=== PATIENT | male | born 1985 | race Caucasian/White ===

== ENCOUNTER 2017-01-26 18:43 | Emergency (ER) | payer SELFPAY ==
[~2017-01-26] VITALS: Ht 167.6 cm; Wt 90.7 kg
[~2017-01-26 18:43] MED LIST: AMOXICILLIN500 MG ORAL; BACTRIM DS TAB1 EAC1 ORAL; IBUPROFEN600 MG ORAL; KEFLEX500 MG ORAL; NORCO 5-325 TA1 EACH ORAL
--- NOTE | 2017-01-26 19:01 | Emergency Room Report ---
History of Present Illness General Chief Complaint: Skin Rash/Abscess Source: Patient Present Illness HPI 32-year-old male presents emergency department complaining of pain, swelling, erythema and tenderness rated as 8/10 in severity in the left axilla x5 days. Patient denies fevers, chills, trauma or fall. He reports progressive swelling and tenderness. He should seek is up-to-date with vaccinations. he states he had a previous abscess along posterior calf in the past. Denies CP, Palpitations, LOC, AMS, dizziness, Changes in Vision, Sensation, paresthesias, or a sudden severe headache. Allergies: Coded Allergies: NO KNOWN DRUG ALLERGIES (Unverified Allergy, Unknown, 09/20/15) Patient History Past Medical History: see triage record Past Surgical History: none Pertinent Family History: none Reviewed Nursing Documentation: PMH: Agreed, PSxH: Agreed Nursing Documentation-PMH Past Medical History: No Stated History Review of Systems All Other Systems: negative except mentioned in HPI Physical Exam Vital Signs Date Time Temp Pulse Resp B/P Pulse Ox O2 Delivery O2 Flow Rate FiO2 01/26/17 18:45 98.2 111 18 126/79 98 Room Air Sp02 EP Interpretation: reviewed, normal General Appearance: no apparent distress, alert, GCS 15, non-toxic Head: normocephalic, atraumatic Eyes: bilateral eye PERRL, bilateral eye normal inspection ENT: hearing grossly normal, normal pharynx, no angioedema, normal voice Neck: full range of motion, supple/symm/no masses Respiratory: lungs clear, normal breath sounds, speaking full sentences Cardiovascular #1: regular rate, rhythm, no edema Musculoskeletal: back normal, gait/station normal, normal range of motion, non- tender, tender - ttp to the left axilla, FROM Neurologic: alert, oriented x3, responsive, motor strength/tone normal, sensory intact, speech normal Psychiatric: judgement/insight normal, memory normal, mood/affect normal Skin: normal color, no rash, warm/dry, well hydrated, other - 2.5cm abscess to the left axilla, fluctuance palpated, erythema, swelling, tenderness. Lymphatic: no adenopathy Procedures Incision and Drainage Incision and Drainage : Consent: Verbal Site: left axilla Blade Size: 11 I & D Procedure: betadine prep Wound Location: upper extremity - left axilla Wound's Depth, Shape: superficial Wound Length (cm): 1 Wound Explored: contaminated - purulent drainage expressed Anesthesia: Lidocaine w/ Epi Volume Anesthetic (ccs): 1 Splint Applied?: No Sling Applied?: No Patient Tolerated: Well Complications: None Medical Decision Making PA Attestation Dr. Mobley is my supervising Physician whom patient management has been discussed with. Diagnostic Impression: Primary Impression: Abscess ER Course Pt. presents to the ED c/o pain, swelling, and erythema of left axilla x 5 days. Ddx considered but are not limited to cellulitis, abscess, cystic acne, necrotizing fasciitis, insect bite. Vital signs: are WNL, pt. is afebrile H&PE are most consistent with abscess ORDERS: none required at this time, the diagnosis is clinical ED INTERVENTIONS: -I & D. DISCHARGE: At this time pt. is stable for d/c to home. Will provide printed patient care instructions, and any necessary prescriptions. Care plan and follow up instructions have been discussed with the patient prior to discharge. Last Vital Signs Date Time Temp Pulse Resp B/P Pulse Ox O2 Delivery O2 Flow Rate FiO2 01/26/17 18:45 98.2 111 18 126/79 98 Room Air Disposition: HOME, SELF-CARE Condition: Stable Scripts Bacitracin/Polymyxin B Sulfate (BACITRACIN-POLYMYXIN OINTMENT) 28.35 Gm Oint...g. 1 APPLIC TP BID, #28.3 GM Prov: Pam Hsu 01/26/17 Acetaminophen* (TYLENOL EXTRA STRENGTH*) 500 Mg Tablet 500 MG ORAL Q6H, #20 TAB 0 Refills Prov: Pam Hsu 01/26/17 Clindamycin Hcl (CLEOCIN HCL) 300 Mg Capsule 300 MG PO TID for 7 Days, #21 CAP Prov: Pam Hsu 01/26/17 Departure Forms: Return to Work Return to Work Date: Jan 30, 2017 Work Restrictions: No Heavy Lifting, No Prolonged Standing Return to Full Activity: Feb 03, 2017 Patient Instructions: Abscess Additional Instructions: Take medications as directed. Follow up with PCP in 3-5 days Return sooner to ED if new symptoms occur, or current symptoms become worse. - Please note that this Emergency Department Report was dictated using [employer] instructor technology software, occasionally this can lead to erroneous entry secondary to interpretation by the dictation equipment. Pam Hsu Jan 26, 2017 19:00
[2017-01-26] MEDS ORDERED: CLEOCIN HCL300 MG PO (19:04)
[2017-01-26] MEDS ORDERED: BACITRACIN-P28.35 GM TP (19:04)
[2017-01-26] MEDS ORDERED: TYLENOL EXTRA500 MG ORAL (19:04)
[2017-01-26 19:15] VITALS: BP 126/79
[2017-01-26] MEDS ORDERED: Norco 5mg/325mg tab ORAL ONE (19:15)
[2017-01-26 20:07] VITALS: BP 118/71
== END 2017-01-27 02:33 | disposition home or self-care (01) ==
LOC: EMR 18:55
DX: L02.412 Cutaneous abscess of left axilla (principal)
CPT/HCPCS: 10060

== ENCOUNTER 2017-03-25 08:24 | Emergency (ER) | payer MEDICAID ==
[~2017-03-25] VITALS: Ht 167.6 cm; Wt 81.6 kg
[~2017-03-25 08:24] MED LIST changes: +BACITRACIN-P28.35 GM TP; +CLEOCIN HCL300 MG PO; +TYLENOL EXTRA500 MG ORAL
[2017-03-25] MEDS ORDERED: Ketorolac 30mg Inj IV ONE (09:00)
[2017-03-25] MEDS ORDERED: Ampicillin/Sulbactam Sod 3 GM in NS 110 ML IVPB ONE (09:00)
[2017-03-25] MEDS ORDERED: Unasyn 3gm Inj ONE (09:07)
[2017-03-25] MEDS ORDERED: BACTRIM DS TAB1 EAC1 ORAL (09:51)
[2017-03-25] MEDS ORDERED: AUGMENTIN 875-1 EAC1 ORAL (09:51)
[2017-03-25] MEDS ORDERED: IBUPROFEN600 MG ORAL (09:51)
[2017-03-25 10:01] LABS: BASOPHILS % (AUTO) 0.5 % (0.0-2.0); EOSINOPHILS % (AUTO) 1.9 % (0.0-3.0); LYMPHOCYTES % (AUTO) 21.9 % (20.0-45.0); MEAN CORPUSCULAR HEMOGLOBIN 30.4 PG (27.0-31.0); MEAN CORPUSCULAR HGB CONC 32.7 G/DL (32.0-36.0); MEAN CORPUSCULAR VOLUME 93 FL (80-99); MEAN PLATELET VOLUME 7.3 FL (6.5-10.1); NEUTROPHILS % (AUTO) 66.7 % (45.0-75.0); PLATELET COUNT 281 K/UL (150-450); RED BLOOD COUNT 5.15 M/UL (4.70-6.10); RED CELL DISTRIBUTION WIDTH 12.2 % (11.6-14.8); WHITE BLOOD COUNT 12.6 K/UL (4.8-10.8)
[2017-03-25 10:17] LABS: ANION GAP 11 (5-15); CARBON DIOXIDE 26 mEQ/L (20-30); CHLORIDE 100 mEQ/L (98-107); GLOMERULAR FILTRATION RATE > 60 mL/min (>60); HEMOLYSIS 9; POTASSIUM 4.1 mEQ/L (3.4-4.9); SODIUM 137 mEQ/L (135-145)
[2017-03-25 10:38] VITALS: BP 116/78
--- NOTE | 2017-03-29 15:12 | Emergency Room Report ---
History of Present Illness General Chief Complaint: Skin Rash/Abscess Source: Patient Present Illness HPI Patient 32-year-old male presented after increased upper extremity pain and swelling. The patient gradual onset of symptoms over the past 2 days. He stated he started with a pimple which she subsequently attempted to drain. Patient reported having increased pain to his upper extremity. He had not been having fever. Patient had prior history of abscess. The patient denied any fever had gradually worsening symptoms. Allergies: Coded Allergies: NO KNOWN DRUG ALLERGIES (Unverified Allergy, Unknown, 09/20/15) Patient History Past Medical History: see triage record Reviewed Nursing Documentation: PMH: Agreed, PSxH: Agreed Nursing Documentation-PMH Past Medical History: No Stated History Review of Systems All Other Systems: negative except mentioned in HPI Physical Exam Vital Signs Date Time Temp Pulse Resp B/P Pulse Ox O2 Delivery O2 Flow Rate FiO2 03/25/17 08:35 97.9 85 20 104/73 100 Room Air Sp02 EP Interpretation: reviewed, normal General Appearance: normal inspection, well appearing, no apparent distress, alert, GCS 15 Head: atraumatic ENT: normal ENT inspection, hearing grossly normal, normal voice Neck: normal inspection, full range of motion, supple, no bony tend Respiratory: normal inspection, lungs clear, normal breath sounds, no respiratory distress, no retraction, no wheezing Cardiovascular #1: regular rate, rhythm, no edema Gastrointestinal: normal inspection, normal bowel sounds, non tender, soft, no guarding, no hernia Genitourinary: no CVA tenderness Musculoskeletal: normal inspection, back normal, normal range of motion Neurologic: normal inspection, alert, responsive, speech normal Psychiatric: normal inspection, judgement/insight normal, mood/affect normal Skin: other - erythema and induration of extremity Procedures Incision and Drainage Incision and Drainage : Consent: Verbal I & D Procedure: betadine prep, sterile drapes applied, sterile dressing applied Wound Location: upper extremity Wound's Depth, Shape: superficial Wound Length (cm): 1 Wound Explored: clean Anesthesia: 1% Lidocaine Patient Tolerated: Well Complications: None Medical Decision Making Diagnostic Impression: Primary Impression: Cellulitis ER Course Patient presented for skin rash. Differential diagnosis included was not limited to abscess, cellulitis, folliculitis, necrotizing fasciitis. Because of complexity of patient's case laboratory testing and imaging studies were ordered. Patient's benign exam and does not appear to require any further imaging or laboratory testing at this time. The patient was given IV antibiotics. The patient was noted to have some evidence of cellulitis. There is no significant purulent drainage. The patient is advised to follow up with primary care doctor in 1-2 days. Patient is advised to return if any worsening condition or if any changes in status that are concerning. Last Vital Signs Date Time Temp Pulse Resp B/P Pulse Ox O2 Delivery O2 Flow Rate FiO2 03/25/17 10:38 69 16 116/82 97 Room Air 03/25/17 10:38 98.0 Status: improved Disposition: HOME, SELF-CARE Condition: Stable Scripts Ibuprofen* (MOTRIN*) 600 Mg Tablet 600 MG ORAL Q8H Y for For Pain, #30 TAB 0 Refills Prov: Juan M Boss 03/25/17 Trimethoprim/Sulfamethoxazole 160/800* (BACTRIM DS TABLET*) 1 Each Tablet 1 TAB ORAL Q12H, #14 TAB 0 Refills Prov: Juan M Boss 03/25/17 Amoxicillin/Potassium Clav 875-125* (AUGMENTIN 875-125 TABLET*) 1 Each Tablet 1 TAB ORAL TWICE A DAY, #14 TAB Prov: Juan M Boss 03/25/17 Referrals: NOT CHOSEN IPA/,REFERRING (PCP) Patient Instructions: Cellulitis Juan M Boss Mar 29, 2017 15:12
--- NOTE | 2017-03-31 00:15 | Progress Note ---
DATE: 03/30/2017 INTERNAL MEDICINE PROGRESS NOTE SUBJECTIVE: The patient's swelling of the right upper extremity and pain has decreased. Cultures of the drainage revealed Staph aureus. Hemoglobin A1c was normal at 5.7. TSH was normal at 1.1. OBJECTIVE: VITAL SIGNS: Stable. Afebrile. NECK: Supple. LUNGS: Clear. CARDIAC: Regular. Normal S1 and S2 with no murmur. ABDOMEN: Soft. There is minimal residual soft tissue swelling of the right forearm. No active drainage from the elbow and warmth and redness has decreased. IMAGING STUDIES: The CAT scan of the right upper extremity revealed no evidence of abscess or osteomyelitis. IMPRESSION: Right upper extremity cellulitis improving due to Staph aureus. PLAN: Await final sensitivities. Continue intravenous antibiotics with vancomycin for now. Wound and skin care. Dustin Hathaway M.D. DR: JESSICA JOB#: [id number] CC:
== END 2017-03-25 10:38 | disposition home or self-care (01) ==
LOC: EMR 08:46
DX: L03.113 Cellulitis of right upper limb (principal)
CPT/HCPCS: 10060; 36415; 80048; 85025; 96374; 96375; 99284; J0295; J1885

== ENCOUNTER 2017-03-27 19:42 | Inpatient (IN) | payer MEDICAID ==
[~2017-03-27] VITALS: Ht 167.6 cm; Wt 93.9 kg
[~2017-03-27 19:42] MED LIST changes: +AUGMENTIN 875-1 EAC1 ORAL
[2017-03-27] MEDS ORDERED: NS 1000ml 2,200 ML IVLG ONE (21:15)
[2017-03-27] MEDS ORDERED: Vancomycin 1.5gm/D5W 250ml 250 ML IVPB ONE (21:15)
[2017-03-27] MEDS ORDERED: Unasyn 3gm Inj IV ONE (21:15)
[2017-03-27] MEDS ORDERED: oxyCODONE HCL/Acetaminophen 5/325mg ORAL ONE (21:15)
[2017-03-27] MEDS ORDERED: Piperacillin/Tazobactam 4.5 GM in NS 110 ML IV SCH (22:00)
[2017-03-27 22:43] LABS: BASOPHILS % (AUTO) 1.3 % (0.0-2.0); EOSINOPHILS % (AUTO) 2.1 % (0.0-3.0); LYMPHOCYTES % (AUTO) 24.1 % (20.0-45.0); MEAN CORPUSCULAR HEMOGLOBIN 32.1 PG (27.0-31.0); MEAN CORPUSCULAR HGB CONC 34.6 G/DL (32.0-36.0); MEAN CORPUSCULAR VOLUME 93 FL (80-99); MEAN PLATELET VOLUME 7.1 FL (6.5-10.1); MONOCYTES % (AUTO) 9.1 % (1.0-10.0); NEUTROPHILS % (AUTO) 63.3 % (45.0-75.0); PLATELET COUNT 292 K/UL (150-450); RED CELL DISTRIBUTION WIDTH 11.9 % (11.6-14.8); WHITE BLOOD COUNT 13.1 K/UL (4.8-10.8)
[2017-03-27 22:46] LABS: ALANINE AMINOTRANSFERASE 80 U/L (3-41); ALBUMIN/GLOBULIN RATIO 1.2 (1.0-2.7); ANION GAP 14 (5-15); ASPARTATE AMINO TRANSFERASE 32 U/L (5-40); CALCIUM 9.4 mg/dL (8.6-10.2); CARBON DIOXIDE 24 mEQ/L (20-30); CHLORIDE 98 mEQ/L (98-107); GLOMERULAR FILTRATION RATE > 60 mL/min (>60); HEMOLYSIS 11; POTASSIUM 3.9 mEQ/L (3.4-4.9); SODIUM 136 mEQ/L (135-145); TOTAL PROTEIN 7.9 g/dL (6.6-8.7)
[2017-03-27 22:57] LABS: CKMB < 1.5 ng/mL (< 6.7)
[2017-03-27 23:32] VITALS: BP 125/84
[2017-03-28 01:05] VITALS: BP 135/80
[2017-03-28] MEDS ORDERED: Milk of Magnesia 30ml Ud ORAL PRN (01:15)
[2017-03-28] MEDS ORDERED: Potassium Chloride 10 MEQ in NS 1000ml 1,000 ML IV SCH (02:00)
[2017-03-28] MEDS ORDERED: Cefepime 1gm vial ONE (03:08)
[2017-03-28] MEDS: Cefepime HCl 1 GM in D5W 55 ML IVPB SCH ×3 (03:28→20:23)
[2017-03-28 04:00] VITALS: BP 120/64
[2017-03-28] MEDS: Norco 5mg/325mg tab ORAL PRN ×2 (06:57→20:22)
[2017-03-28] MEDS: Potassium Chloride 10 MEQ in NS 1000ml 1,000 ML IV SCH ×3 (07:52→18:45)
[2017-03-28 08:05] VITALS: BP 128/73
[2017-03-28] MEDS: Vancomycin 1.5 GM/D5W 250ML IVPB SCH ×2 (10:30→21:29)
[2017-03-28 12:00] VITALS: BP 113/75
--- NOTE | 2017-03-28 15:24 | Emergency Room Report ---
History of Present Illness General Chief Complaint: Upper Extremity Injury Source: Patient Present Illness HPI 32YOM walk in with worsening right arm pain for 1 week Was seen here ?1 week prior - no note in EMR but visit noted. Got IV unsasyn. Got PO Abx at home. States took Abx, no improvement No pain spreading to right shoulder, down right arm No fever/chills Multiple visits here previously for cellulitis/abscess States initial improvement last week with IV abx Allergies: Coded Allergies: NO KNOWN DRUG ALLERGIES (Unverified Allergy, Unknown, 09/20/15) Patient History Past Medical History: other - Cellulitis/abscess Past Surgical History: none Pertinent Family History: none Social History: Denies: alcohol use, drug use, smoking Immunizations: UTD Reviewed Nursing Documentation: PMH: Agreed, PSxH: Agreed Nursing Documentation-PMH Past Medical History: No Stated History Review of Systems All Other Systems: negative except mentioned in HPI Physical Exam Vital Signs Date Time Temp Pulse Resp B/P Pulse Ox O2 Delivery O2 Flow Rate FiO2 03/27/17 20:15 100.4 103 18 127/73 98 03/27/17 23:32 Room Air Sp02 EP Interpretation: reviewed, normal General Appearance: normal inspection, well appearing, no apparent distress, alert Head: atraumatic ENT: normal ENT inspection, hearing grossly normal, normal voice Neck: normal inspection, full range of motion, supple, no bony tend Respiratory: normal inspection, lungs clear, normal breath sounds, no respiratory distress, no retraction, no wheezing Cardiovascular #1: regular rate, rhythm, no edema Gastrointestinal: normal inspection, normal bowel sounds, non tender, soft, no guarding, no hernia Genitourinary: no CVA tenderness Musculoskeletal: normal inspection, back normal, normal range of motion, Sylvester' s Sign negative, other - Right arm: swelling/erythema/induration from distal humerus, including elbow, and proximal forearm. Able to close fist. 2++ distal radius. Very ttp Neurologic: normal inspection, alert, oriented x3, responsive, nuclear officer III-XII nml as tested, motor strength/tone normal, speech normal Psychiatric: normal inspection, judgement/insight normal, mood/affect normal Skin: normal inspection, normal color, no rash Medical Decision Making Diagnostic Impression: Primary Impression: Cellulitis Qualified Codes: L03.113 - Cellulitis of right upper limb ER Course Progressive cellulitis right arm Failed outpatient PO abx Labs: Leuks 13K No other metabolic abnormalities IV Abx given here Blood Cx pending Admitted to Dr Hathaway, med/surg at 1030pm EKG Diagnostic Results Rate: normal Rhythm: NSR ST Segments: no acute changes ASA given to the pt in ED: No Last Vital Signs Date Time Temp Pulse Resp B/P Pulse Ox O2 Delivery O2 Flow Rate FiO2 03/28/17 12:00 98.1 80 18 113/75 100 Room Air Status: improved Disposition: ADMITTED INPATIENT Condition: Serious Referrals: NOT CHOSEN IPA/,REFERRING (PCP) JEANCARLOS GALLARDO M.D. Mar 28, 2017 15:24
[2017-03-28 15:49] VITALS: BP 125/92
[2017-03-28 19:45] VITALS: BP 132/78
[2017-03-29] MEDS ORDERED: DiphenhydrAMINE 50mg/ml Inj IVP PRN (00:45)
--- NOTE | 2017-03-29 01:15 | History and Physical Report ---
DATE OF ADMISSION: 03/28/2017 REASON FOR ADMISSION: Right upper extremity cellulitis. HISTORY OF PRESENT ILLNESS: This is a 32-year-old male. He noted a scratch on his elbow several days ago and subsequent erythema and warmth. He was seen in the emergency room on 03/25/2017 and started on oral antibiotics, but failed to improve with progression of the warmth, redness, and swelling prompting his return and hospitalization for intravenous therapy. The patient has been hospitalized here twice in the past few years for skin infection. On one occasion, he had a boil under his arm pit. On another occasion, he had an infected hair follicle on his arm with associated cellulitis that resolved with intravenous therapy. The patient denies any history of intravenous drug abuse and has no other history of infection. There is no known history of diabetes mellitus despite a family history. PAST MEDICAL HISTORY: Otherwise unremarkable. MEDICATIONS PRIOR TO ADMISSION: None. SOCIAL HISTORY: Negative for smoking, alcohol, or substance abuse. FAMILY HISTORY: Notable for diabetes in his paternal side of the family. REVIEW OF SYSTEMS: A 10-point review of systems performed, all systems negative. PHYSICAL EXAMINATION: VITAL SIGNS: Temperature 100.4 degrees, blood pressure 127/73, heart rate 103, and respiratory rate 18. HEENT: Conjunctivae are pink. Oropharynx clear. Mucous membranes moist. NECK: Supple. Jugular venous pressure normal. No adenopathy. LUNGS: Clear. Chest wall without deformity. CARDIAC: Regular rhythm and rate. Normal S1 and S2 with no murmur. ABDOMEN: Soft and nontender. EXTREMITIES: With swelling, erythema, and induration of the right upper extremity from the distal humerus including the elbow to the proximal forearm. The patient is able to move his hands and make a fist. He has a Band-Aid over the elbow with a small abrasion under. LABORATORY DATA: Reviewed. IMPRESSION: 1. Right upper extremity cellulitis. 2. Leukocytosis. 3. Family history of diabetes mellitus. PLAN: 1. Skin care. 2. Intravenous antibiotics. 3. Tetanus prophylaxis if not up-to-date. 4. Check hemoglobin A1c. Dustin Hathaway M.D. : ERIN JOB#: [id number] CC:
[2017-03-29] MEDS: Norco 5mg/325mg tab ORAL PRN ×3 (03:01→20:29)
[2017-03-29 06:40] LABS: BASOPHILS % (AUTO) 0.9 % (0.0-2.0); EOSINOPHILS % (AUTO) 3.5 % (0.0-3.0); LYMPHOCYTES % (AUTO) 25.6 % (20.0-45.0); MEAN CORPUSCULAR HEMOGLOBIN 31.4 PG (27.0-31.0); MEAN CORPUSCULAR HGB CONC 33.7 G/DL (32.0-36.0); MEAN CORPUSCULAR VOLUME 93 FL (80-99); MEAN PLATELET VOLUME 7.1 FL (6.5-10.1); MONOCYTES % (AUTO) 12.1 % (1.0-10.0); PLATELET COUNT 300 K/UL (150-450); RED BLOOD COUNT 4.74 M/UL (4.70-6.10); RED CELL DISTRIBUTION WIDTH 11.9 % (11.6-14.8); WHITE BLOOD COUNT 8.9 K/UL (4.8-10.8)
[2017-03-29 06:58] LABS: ALANINE AMINOTRANSFERASE 72 U/L (3-41); ALBUMIN/GLOBULIN RATIO 1.1 (1.0-2.7); ANION GAP 11 (5-15); ASPARTATE AMINO TRANSFERASE 28 U/L (5-40); CALCIUM 9.1 mg/dL (8.6-10.2); CARBON DIOXIDE 27 mEQ/L (20-30); CHLORIDE 100 mEQ/L (98-107); GLOMERULAR FILTRATION RATE > 60 mL/min (>60); HEMOLYSIS 2; POTASSIUM 4.5 mEQ/L (3.4-4.9); SODIUM 138 mEQ/L (135-145); TOTAL PROTEIN 7.3 g/dL (6.6-8.7)
[2017-03-29 08:00] VITALS: BP 118/77
[2017-03-29] MEDS: Cefepime HCl 1 GM in D5W 55 ML IVPB SCH ×2 (08:16→20:29)
[2017-03-29] MEDS: Vancomycin 1.5 GM/D5W 250ML IVPB SCH ×2 (10:20→22:34)
[2017-03-29] MEDS: Potassium Chloride 10 MEQ in NS 1000ml 1,000 ML IV SCH ×2 (10:21→16:12)
--- NOTE | 2017-03-29 10:35 | Consultation ---
History of Present Illness General Date patient seen: Mar 29, 2017 Chief Complaint: Upper Extremity Injury Reason for Consultation: right upper extremity cellulitis Present Illness HPI 32 year old otherwise healthy male presented with worsening right upper extremity cellulitis. As per patient, a few days ago he had an "insect" bite to the right elbow. since noted some pain, swelling, and redness. Went to ED to have it evaluated and was diagnosed with cellulitis (no abscess noted at that time). Was discharged home with oral abx from ED. Since notes worsening cellulitis and returned. Was admitted for IV Abx and care. Earlier today noted some purulent drainage from wound. Surgery called to evaluate. When seen at bedside patient and family presents. states he is okay but infection not improving. no n/v/f/c. pain in right arm and swelling. no issues with active or passive motion but somewhat limited from swelling. Has had prior episodes, one right left axilla and one on right leg years ago. Allergies: Coded Allergies: NO KNOWN DRUG ALLERGIES (Unverified Allergy, Unknown, 09/20/15) Medication History Scheduled Acetaminophen* (Tylenol Extra Strength*), 500 MG ORAL Q6H Amoxicillin/Potassium Clav 875-125* (Augmentin 875-125 Tablet*), 1 TAB ORAL TWICE A DAY Bacitracin/Polymyxin B Sulfate (Bacitracin-Polymyxin Ointment), 1 APPLIC TP BID Clindamycin Hcl (Cleocin Hcl), 300 MG PO TID Trimethoprim/Sulfamethoxazole 160/800* (Bactrim Ds Tablet*), 1 TAB ORAL Q12H Scheduled PRN Ibuprofen* (Motrin*), 600 MG ORAL Q8H PRN for For Pain Patient History History Provided By: Patient Healthcare decision maker FARRUKH BUSH, SELF Resuscitation status Full Code Advanced Directive on File N/A Past Medical/Surgical History Past Medical/Surgical History: (1) [id number] (2) shoulder reduction (3) Cellulitis and abscess of lower extremity (4) Cellulitis and abscess of leg (5) Influenza-like symptoms (6) Abscess (7) Cellulitis Review of Systems Constitutional: Denies: chills, fever, malaise, no symptoms, other, see HPI, sweats, weakness Eye: Denies: acuity changes, blurred vision, discharge, double vision, eye pain , no symptoms, nose congestion, nose pain, other, see HPI, tearing ENT: Denies: ear discharge, ear pain, hearing loss, mouth pain, nasal discharge , no symptoms, nose congestion, nose pain, other, see HPI, throat pain, throat swelling Respiratory: Denies: MEADOWS, cough, no symptoms, orthopnea, other, see HPI, shortness of breath, sputum, stridor, wheezing Cardiovascular: Denies: PND, chest pain, edema, no symptoms, other, palpitations, see HPI, syncope Gastrointestinal: Denies: abdominal pain, constipation, diarrhea, hematemesis, melena, nausea, no symptoms, other, see HPI, vomiting Genitourinary: Denies: discharge, dysuria, frequency, hematuria, incontinence, no symptoms, other, pain, retention, see HPI, urgency, vag bleed/dc Musculoskeletal: Denies: back pain, gout, joint pain, joint swelling, muscle pain, muscle stiffness, no symptoms, other, see HPI Skin: Denies: change in color, change in hair/nails, dryness, lesions, no symptoms, other, rash, see HPI Psychiatric: Denies: HI, SI, anxiety, depressed feelings, emotional problems, hallucinations, no symptoms, other, prior hx, see HPI Neurological: Denies: dizziness, focal weakness, headache, no symptoms, numbness, other, paresthesia, see HPI, seizure, syncope, tingling, tremors Endocrine: Denies: excessive sweating, flushing, increased thirst, increased urine, intolerance to temperature, no symptoms, other, see HPI, unexplained weight loss Hematologic/Lymphatic: Denies: anemia, blood clots, diathesis, easy bleeding, easy bruising, no symptoms, other, see HPI, swollen glands All Other Systems: negative except mentioned in HPI Physical Exam General Appearance: WD/WN, no apparent distress, alert Lines, tubes and drains: peripheral HEENT: normocephalic, atraumatic, mucous membranes moist, PERRL Neck: normal inspection Respiratory/Chest: normal breath sounds, no respiratory distress, no accessory muscle use Cardiovascular/Chest: normal rate, regular rhythm, regularly irregular Abdomen: soft, no organomegaly, no mass Extremities: other - right upper extremity with small 3mm trauma at elbow with spontaneous drainage of 1cc of pus. mild cellulitis proximally and distally. okay active and passive range of motion. no abscess cavity or areas of fluctuance noted. Skin Exam: normal pigmentation Neurologic: alert, oriented x 3 Last 24 Hour Vital Signs Date Time Temp Pulse Resp B/P Pulse Ox O2 Delivery O2 Flow Rate FiO2 03/29/17 08:00 97.9 75 18 118/77 96 Room Air 03/29/17 04:11 98.0 03/28/17 19:45 98.0 89 18 132/78 98 Room Air 03/28/17 15:49 98.1 96 18 125/92 95 Room Air 03/28/17 12:00 98.1 80 18 113/75 100 Room Air Intake and Output 03/28/17 03/29/17 19:00 07:00 Intake Total 1960 ml 910 ml Balance 1960 ml 910 ml Intake Oral 600 ml 480 ml IV Total 1360 ml 430 ml # Voids 3 2 Laboratory Tests Test 03/29/17 05:10 White Blood Count 8.9 K/UL (4.8-10.8) Red Blood Count 4.74 M/UL (4.70-6.10) Hemoglobin 14.9 G/DL (14.2-18.0) Hematocrit 44.2 % (42.0-52.0) Mean Corpuscular Volume 93 FL (80-99) Mean Corpuscular Hemoglobin 31.4 PG (27.0-31.0) H Mean Corpuscular Hemoglobin Concent 33.7 G/DL (32.0-36.0) Red Cell Distribution Width 11.9 % (11.6-14.8) Platelet Count 300 K/UL (150-450) Mean Platelet Volume 7.1 FL (6.5-10.1) Neutrophils (%) (Auto) 58.0 % (45.0-75.0) Lymphocytes (%) (Auto) 25.6 % (20.0-45.0) Monocytes (%) (Auto) 12.1 % (1.0-10.0) H Eosinophils (%) (Auto) 3.5 % (0.0-3.0) H Basophils (%) (Auto) 0.9 % (0.0-2.0) Sodium Level 138 mEQ/L (135-145) Potassium Level 4.5 mEQ/L (3.4-4.9) Chloride Level 100 mEQ/L (98-107) Carbon Dioxide Level 27 mEQ/L (20-30) Anion Gap 11 (5-15) Blood Urea Nitrogen 8 mg/dL (7-23) Creatinine 1.0 mg/dL (0.7-1.2) Estimat Glomerular Filtration Rate > 60 mL/min (>60) Glucose Level 113 mg/dL (74-106) H Calcium Level 9.1 mg/dL (8.6-10.2) Total Bilirubin 0.5 mg/dL (0.0-1.2) Aspartate Amino Transf (AST/SGOT) 28 U/L (5-40) Alanine Aminotransferase (ALT/SGPT) 72 U/L (3-41) H Alkaline Phosphatase 55 U/L (40-129) Total Protein 7.3 g/dL (6.6-8.7) Albumin 3.9 g/dL (3.5-5.2) Globulin 3.4 g/dL Albumin/Globulin Ratio 1.1 (1.0-2.7) Thyroid Stimulating Hormone (TSH) 1.130 uIU/mL (0.300-4.500) Height (Feet): 5 Height (Inches): 6.00 Weight (Pounds): 207 Medications Current Medications Medications (Trade) Dose Ordered Sig/Shane Route PRN Reason Start Time Stop Time Status Last Admin Dose Admin Acetaminophen (Tylenol) 650 mg Q6H PRN ORAL Mild Pain/Temp > 100.5 03/28/17 01:15 04/27/17 01:14 03/28/17 07:53 Acetaminophen/ Hydrocodone Bitart (Paxton 5/325) 1 tab Q6H PRN ORAL For Pain moderate-severe 03/28/17 01:15 04/04/17 01:14 03/29/17 03:01 Cefepime HCl/ Dextrose (Maxipime/D5W) 55 ml @ 110 mls/hr EVERY 12 HOURS IVPB 03/28/17 01:15 04/04/17 01:14 03/29/17 08:16 Diphenhydramine HCl (Benadryl) 25 mg Q6H PRN IVP Itching 03/29/17 00:45 04/28/17 00:44 Magnesium Hydroxide 30 ml 30 ml DAILYPRN PRN ORAL Constipation 03/28/17 01:15 04/27/17 01:14 Potassium Chloride/Sodium Chloride (KCl/Sodium Chloride 1000ml bag) 1,005 ml @ 125 mls/hr Q8H3M IV 03/28/17 08:00 04/27/17 07:59 03/28/17 18:45 Vancomycin HCl 1 ea 1 ea DAILY PRN MISC Per rx protocol 03/28/17 01:15 04/27/17 01:14 Vancomycin HCl/ Dextrose 250 ml @ 125 mls/hr Q12H IVPB 03/28/17 10:00 04/02/17 09:59 03/28/17 21:29 Assessment/Plan Problem List: (1) Cellulitis Assessment & Plan: 32 year old male right upper extremity cellulitis with small 3mm spontaneously drainage abscess at initial wound site. Afebrile, HD stable, no leukocytosis, arm with some cellulitis proximal and distal to injury site but no other abscess or fluctuance noted. Cultures of spontaneously drainage taken No acute surgical intervention necessary Abx as per primary needs to keep right upper extremity elevated until cellulitis resolves. will continue to monitor. ICD Codes: L03.90 - Cellulitis, unspecified SNOMED: [id number] Qualifiers: Qualified Codes: L03.113 - Cellulitis of right upper limb Status: stable Rony Lawson Mar 29, 2017 10:35
[2017-03-29 15:46] VITALS: BP 125/74
[2017-03-29 20:00] VITALS: BP 118/80
--- NOTE | 2017-03-29 21:15 | Consultation ---
DATE OF CONSULTATION: 03/29/2017 INFECTIOUS DISEASES CONSULTATION PRIMARY ATTENDING PHYSICIAN: Dustin Hathaway M.D. REASON FOR CONSULT: Cellulitis, abscess of right upper extremity. HISTORY OF PRESENT ILLNESS: The patient is a 32-year-old male admitted on 03/27/2017 complaining of pain, swelling, and erythema in the right upper extremity elbow area. The patient had a previous visit to ER on 03/25/2017 when he was diagnosed with cellulitis and discharged with p.o. Bactrim, Augmentin, and ibuprofen. Apparently, the patient's medication did not work and the area of erythema increased. He had some fever at home and at the time of admission had a temperature of 100.4, has also tachycardia of 113 at the time of admission. PAST MEDICAL HISTORY: History of right shoulder dislocation, has history of skin abscess, cellulitis in right foot and left axilla. MEDICATIONS: Diphenhydramine, vancomycin, potassium chloride, cefepime, Tylenol, [place], and milk of magnesia. ALLERGIES: No known drug allergy. SOCIAL HISTORY: . Has four children. Denies alcohol, drug abuse, or smoking. REVIEW OF SYSTEMS: Pain, tenderness, and edema in the left and right elbow area. PHYSICAL EXAMINATION: VITAL SIGNS: Temperature 97 degrees, pulse 75, and blood pressure 118/77. GENERAL APPEARANCE: In no acute distress. Awake, alert, and oriented x3. HEAD AND NECK: L[place] conjunctiva. No oral lesion. HEART: S1 and S2 regular. Normal rate. LUNGS: Clear. ABDOMEN: Soft and nontender. EXTREMITIES: Have erythema, edema in right elbow area. There is some small opening of olecranon area. No significant discharge at the time of examination. LABORATORY AND DIAGNOSTIC DATA: WBC 8.9, coming down from 13.1, hemoglobin 14.9, hematocrit 44.2, and platelets are 300,000. Sodium 138, potassium 4.9, chloride 100, bicarbonate 27, BUN 8, creatinine 1. . Lactic acid was in normal limits. ALT is elevated at 72. Blood culture x2 are negative. Wound culture is pending. IMPRESSION: 1. Cellulitis of right upper extremity. 2. A small abscess in olecranon area, may have olecranon bursitis also. RECOMMENDATION: We will continue with cefepime and vancomycin. We will follow up the wound culture. We will suggest MRSA screening. At the end of my exam, I thank Dr. Hathaway for involving me in the care of this patient. Blaise Pace M.D. DR: ESPERANZA JOB#: [id number] CC: RICKY
[2017-03-30] VITALS: BP 134/85
[2017-03-30 04:00] VITALS: BP 124/78
[2017-03-30] MEDS: Vancomycin 1250mg/D5W 250ml IVPB SCH ×3 (06:35→22:46)
[2017-03-30 07:15] LABS: BASOPHILS % (AUTO) 1.8 % (0.0-2.0); EOSINOPHILS % (AUTO) 5.7 % (0.0-3.0); LYMPHOCYTES % (AUTO) 31.9 % (20.0-45.0); MEAN CORPUSCULAR HEMOGLOBIN 31.2 PG (27.0-31.0); MEAN CORPUSCULAR HGB CONC 33.6 G/DL (32.0-36.0); MEAN CORPUSCULAR VOLUME 93 FL (80-99); MEAN PLATELET VOLUME 7.2 FL (6.5-10.1); MONOCYTES % (AUTO) 13.4 % (1.0-10.0); NEUTROPHILS % (AUTO) 47.2 % (45.0-75.0); PLATELET COUNT 313 K/UL (150-450); RED BLOOD COUNT 4.87 M/UL (4.70-6.10); RED CELL DISTRIBUTION WIDTH 11.8 % (11.6-14.8); WHITE BLOOD COUNT 7.7 K/UL (4.8-10.8)
[2017-03-30 08:20] VITALS: BP 139/98
--- NOTE | 2017-03-30 08:50 | General Progress Note ---
Progress Note Progress Note Surgery: patient seen and examined at bedside. doing well. no acute events. comfortable. pain improved. no n/v/f/c. Afebrile, HD stable, labs okay. wound clean with dressings. mild exudate but no pus. Edema significantly improved. minimal surrounding cellulitis today -okay to shower -daily dressings to right elbow until dry -Abx as per primary -okay to d/c from surgical standpoint Rony Lawson Mar 30, 2017 08:50
[2017-03-30] MEDS: Cefepime HCl 1 GM in D5W 55 ML IVPB SCH (09:37)
--- NOTE | 2017-03-30 10:27 | Diagnostic Imaging Report ---
Indication: Right elbow cellulitis Technique: No IV contrast utilized, per referring physician request Spiral acquisitions obtained through the radial Multiplanar reconstructions were generated. Total dose length product 343 mGycm. CTDIvol(s) left mGy. Radiation dose was minimized using automated exposure control Comparison: None Findings: Lack of IV contrast severely limits evaluation. There is edema of the subcutaneous fat posteriorly, particular the region of the olecranon. No definite discrete fluid collections are evident. The edema extends beyond the included imaging volume. No evidence of joint effusion. No definite evidence of myositis, although lack of IV contrast essentially precludes evaluation for such No definite osseous cortical erosion or other osseous abnormality acute fractures. Prominent lymph nodes are seen in the upper arm, measuring up to 11 mm diameter Impression: Edema of the dorsal subcutaneous fat, consistent with stated clinical history of cellulitis. Although no definite abscess is demonstrated, small abscess is impossible to exclude in the absence of IV contrast administration. If there is high clinical concern, consider ultrasound for further evaluation No evidence of joint effusion. No evidence of osteomyelitis. However, sensitivity of CT for such is somewhat limited. Consider MRI if there is high clinical suspicion The CT scanner at [facility] is accredited by the [employer] and the scans are performed using protocols designed to limit radiation exposure to as low as reasonably achievable to attain images of sufficient resolution adequate for diagnostic evaluation.
--- NOTE | 2017-03-30 12:00 | Progress Note ---
DATE: 03/29/2017 INTERNAL MEDICINE PROGRESS NOTE SUBJECTIVE: The case was discussed with the patient in detail. Swelling, warmth, and drainage from his right upper extremity and elbow region were noted and surgical evaluation for I and D was requested and completed. The patient remains on IV antibiotics. He has low-grade fevers. OBJECTIVE: VITAL SIGNS: Vitals are stable. LABORATORY DATA: White count down to 8.9. Chemistry panel within normal limits. Hemoglobin A1c is pending. Exam otherwise without change. IMPRESSION: Right upper extremity cellulitis with abscess. PLAN: 1. Antibiotics. 2. Wound care mobilize. 3. Check hemoglobin A1c. Dustin Hathaway M.D. DR: JESSICA JOB#: [id number] CC:
--- NOTE | 2017-03-30 12:15 | Infectious Diseases Prog Note ---
"Assessment/Plan Assessment/Plan antibiotics : vancomycin iv, cefepime A 1. right elbow cellulitis | olecranon bursitis with staph aureus 2. leucocytosis improving P 1. continue iv vancomycin 2. d/c cefepime 3. will follow up cultures Subjective Constitutional: Denies: chills, fever Respiratory: Denies: dry cough, shortness of breath Gastrointestinal/Abdominal: Denies: diarrhea, nausea, vomiting Musculoskeletal: Reports: pain - in right arm Allergies: Coded Allergies: NO KNOWN DRUG ALLERGIES (Unverified Allergy, Unknown, 09/20/15) Objective Vital Signs Last 24 Hour Vital Signs Date Time Temp Pulse Resp B/P Pulse Ox O2 Delivery O2 Flow Rate FiO2 03/30/17 08:20 97.3 78 18 139/98 97 Room Air 03/30/17 04:00 97.4 63 18 124/78 97 Room Air 03/30/17 00:00 97.8 66 18 134/85 97 Room Air 03/29/17 20:00 97.9 70 18 118/80 96 Room Air 03/29/17 15:46 98.1 66 19 125/74 97 Room Air Height (Feet): 5 Height (Inches): 6.00 Weight (Pounds): 207 Respiratory/Chest: lungs clear Cardiovascular: normal rate, regular rhythm, no gallop/murmur Abdomen: soft, non tender Extremities: no edema, other - right elbow swelling, drainage Microbiology Date/Time Source Procedure Growth Status 03/27/17 22:18 Blood Blood Culture - Preliminary NO GROWTH AFTER 48 HOURS Resulted 03/27/17 22:00 Blood Blood Culture - Preliminary NO GROWTH AFTER 48 HOURS Resulted 03/29/17 10:00 Elbow Right Gram Stain - Final Resulted 03/29/17 10:00 Wound Culture - Preliminary Staphylococcus Aureus Resulted Laboratory Tests Test 03/29/17 22:05 03/30/17 06:30 Vancomycin Level Trough 8.9 ug/mL (5.0-12.0) White Blood Count 7.7 K/UL (4.8-10.8) Red Blood Count 4.87 M/UL (4.70-6.10) Hemoglobin 15.2 G/DL (14.2-18.0) Hematocrit 45.1 % (42.0-52.0) Mean Corpuscular Volume 93 FL (80-99) Mean Corpuscular Hemoglobin 31.2 PG (27.0-31.0) H Mean Corpuscular Hemoglobin Concent 33.6 G/DL (32.0-36.0) Red Cell Distribution Width 11.8 % (11.6-14.8) Platelet Count 313 K/UL (150-450) Mean Platelet Volume 7.2 FL (6.5-10.1) Neutrophils (%) (Auto) 47.2 % (45.0-75.0) Lymphocytes (%) (Auto) 31.9 % (20.0-45.0) Monocytes (%) (Auto) 13.4 % (1.0-10.0) H Eosinophils (%) (Auto) 5.7 % (0.0-3.0) H Basophils (%) (Auto) 1.8 % (0.0-2.0) Hemoglobin A1c 5.7 % (< 6.0) YUSUF GARDNER Mar 30, 2017 12:15"
[2017-03-30 16:00] VITALS: BP 136/73
[2017-03-30 20:00] VITALS: BP 118/71
[2017-03-31] VITALS: BP 120/69
[2017-03-31 04:00] VITALS: BP 113/61
[2017-03-31] MEDS: Vancomycin 1250mg/D5W 250ml IVPB SCH (05:43)
[2017-03-31 07:47] VITALS: BP 104/55
--- NOTE | 2017-03-31 08:42 | General Progress Note ---
Progress Note Progress Note Surgery: patient seen and examined at bedside. doing well. no acute events. afebrile, HD stable, labs okay. RUE edema/cellulitis resolved. minimal pain. wound clean and healing Abx as per primary can leave wound open to air okay to shower okay to d/c from surgical standpoint can follow up with me in clinic in 2 weeks for wound check or prn Rony Lawson Mar 31, 2017 08:42
[2017-03-31 11:38] VITALS: BP 122/61
--- NOTE | 2017-03-31 12:39 | Cardiology Report ---
APPROVED REPORT EKG Measurement Heart [id number] Normal sinus rhythm Normal ECG
--- NOTE | 2017-03-31 13:27 | Infectious Diseases Prog Note ---
"Assessment/Plan Assessment/Plan A 1. right elbow cellulitis | olecranon bursitis with staph aureus, MSSA 2. leucocytosis resolved P 1. change iv vancomycin to Cefazolin 2. at time of discharge PO Keflex Subjective ROS Limited/Unobtainable: No Constitutional: Reports: no symptoms Respiratory: Reports: no symptoms Cardiovascular: Reports: no symptoms Gastrointestinal/Abdominal: Reports: no symptoms Genitourinary: Reports: no symptoms Skin: Reports: other - itching in right elbow, ulcer Allergies: Coded Allergies: NO KNOWN DRUG ALLERGIES (Unverified Allergy, Unknown, 09/20/15) Objective Vital Signs Last 24 Hour Vital Signs Date Time Temp Pulse Resp B/P Pulse Ox O2 Delivery O2 Flow Rate FiO2 03/31/17 11:38 97.5 59 18 122/61 99 Room Air 03/31/17 07:47 97.7 69 19 104/55 99 Room Air 03/31/17 04:00 97.5 57 17 113/61 97 Room Air 03/31/17 00:00 98.2 77 20 120/69 95 Room Air 03/30/17 20:00 97.2 77 18 118/71 96 Room Air 03/30/17 16:00 97.9 60 16 136/73 99 Room Air Height (Feet): 5 Height (Inches): 6.00 Weight (Pounds): 207 General Appearance: no acute distress HEENT: mucous membranes moist Respiratory/Chest: lungs clear Cardiovascular: normal rate Abdomen: soft, non tender Extremities: no edema Skin: other - decreased erythema & edema of right elow Microbiology Date/Time Source Procedure Growth Status 03/29/17 15:00 Nasal Nares MRSA Culture - Final NO METHICILLIN RESISTANT STAPH AUREUS... Complete 03/29/17 10:00 Elbow Right Gram Stain - Final Resulted 03/29/17 10:00 Wound Culture - Preliminary Staphylococcus Aureus Resulted Current Medications Medications (Trade) Dose Ordered Sig/Shane Route PRN Reason Start Time Stop Time Status Last Admin Dose Admin Acetaminophen (Tylenol) 650 mg Q6H PRN ORAL Mild Pain/Temp > 100.5 03/28/17 01:15 04/27/17 01:14 03/28/17 07:53 Acetaminophen/ Hydrocodone Bitart ([place] 5/325) 1 tab Q6H PRN ORAL For Pain moderate-severe 03/28/17 01:15 04/04/17 01:14 03/29/17 20:29 Diphenhydramine HCl 25 mg 25 mg Q6H PRN IVP Itching 03/29/17 00:45 04/28/17 00:44 Magnesium Hydroxide (Mom) 30 ml DAILYPRN PRN ORAL Constipation 03/28/17 01:15 04/27/17 01:14 Vancomycin HCl (Vanco rx to dose) 1 ea DAILY PRN MISC Per rx protocol 03/28/17 01:15 04/27/17 01:14 Vancomycin HCl/ Dextrose (Vancomycin 1250mg/D5W 250ml) 250 ml @ 166.667 mls/hr Q8H IVPB 03/30/17 06:30 04/04/17 06:29 03/31/17 05:43 CATHRYN HARLEY Mar 31, 2017 13:27"
[2017-03-31] MEDS ORDERED: ceFAZolin sod 1 GM in D5W 55 ML IVPB SCH (15:00)
[2017-03-31 16:00] VITALS: BP 118/72
[2017-03-31] MEDS ORDERED: CEPHALEXIN500 M1 ORAL ×2 (16:58→16:59)
[2017-03-31] MEDS ORDERED: Tubing IV Secondary IV ONE (17:31)
--- NOTE | 2017-04-01 17:20 | Discharge Summary ---
Discharge Summary Hospital Course Date of Admission Mar 27, 2017 at 22:24 Date of Discharge Mar 31, 2017 at 17:32 Admitting Diagnosis cellulitis/abscess HPI Dustin Quiles is a 32 year old male who was admitted on Mar 27, 2017 at 22:24 for Cellulitis/Abscess Hospital Course [id number] Discharge Discharge Disposition Patient was discharged to Home (01) Discharge Diagnoses: Lilly Meeks [employer]NA[employer] Apr 01, 2017 17:20
--- NOTE | 2017-04-01 23:15 | Discharge Summary 2 SIG ---
DATE OF ADMISSION: 03/27/2017 DATE OF DISCHARGE: 03/31/2017 CONSULTANTS: 1. Rony Lawson M.D. 2. Nicole Lara M.D. BRIEF HOSPITAL COURSE: The patient is a 32-year-old male, who noted a scratch on his left elbow several days prior to admission with subsequent erythema and warmth. He presented to the emergency room on 03/25/2017 and was started on oral in antibiotics and was sent home. Symptoms failed to improve with progression of warmth, redness and swelling prompting his return and hospitalization for IV therapy. WBC on admission was elevated to 13. He was admitted to medical floor for right upper extremities and was started on cefepime and vancomycin by Infectious Disease specialist. Surgical evaluation was done. There are no issues with active or passive motion of the arm, but somewhat limited due to the swelling. There was no acute surgical intervention necessary and advised to continue with antibiotic and need to keep right upper extremity elevated. CT scan showed edema on the dorsal subcutaneous fat. No definite abscess demonstrated. No evidence of joint effusion. No evidence of osteomyelitis. He was given wound care. Edema significantly improved. There was mild exudate, but no pus. He was advised can leave the wound open to air and okay to shower. Wound culture showed MSSA. IV vancomycin was changed to cephalexin and at time of discharge was changed to p.o. Keflex. FINAL DIAGNOSIS: Right upper extremity cellulitis with abscess. DISPOSITION: The patient was discharged home. DISCHARGE MEDICATIONS: Cephalexin 500 mg q.i.d. FOLLOWUP: Follow up with Dr. Lawson in two weeks for wound check. ACTIVITY: Can leave the wound open to air and okay to shower. Dustin Hathaway M.D. I have been assigned to dictate discharge summary on this account and I was not involved in the patient's management. Karl GilbertP. DR: TRISHA JOB#: [id number] CC:
== END 2017-03-31 17:32 | disposition home or self-care (01) | DRG 383 ==
LOC: EMR 20:50 → 4W 22:24 → EDBEDREQ 03-28 00:08 → 4W 03-28 01:44 → 4E 03-29 08:57
DX: L03.113 Cellulitis of right upper limb (principal); B95.61 Methicillin susceptible Staphylococcus aureus infection as the cause of diseases classified elsewhere; L02.413 Cutaneous abscess of right upper limb; M71.121 Other infective bursitis, right elbow
CPT/HCPCS: 36415; 80053; 80202; 82550; 82553; 83036; 83605; 84443; 85025; 87040; 87070; 87081; 87181; 87205; 93005; 96360; 96361; 96375

== ENCOUNTER 2017-07-18 23:27 | Emergency (ER) | payer MEDICAID ==
[~2017-07-18] VITALS: Ht 167.6 cm; Wt 90.7 kg
[~2017-07-18 23:27] MED LIST changes: +CEPHALEXIN500 M1 ORAL
[2017-07-19 00:07] VITALS: BP 120/81
--- NOTE | 2017-07-19 00:13 | Emergency Room Report ---
History of Present Illness General Chief Complaint: Male Urogenital Problems Source: Patient Present Illness HPI Patient present with complaints of burning with urination It was that earlier he had whitish discharge with pain That seemed to have improved however at this evening again with urination he had some discharge associated with pain Denies any vomiting denies any chest pain denies any fevers or chills Patient is sexually active he reports only with his Denies any flank pain denies any rash Allergies: Coded Allergies: NO KNOWN DRUG ALLERGIES (Unverified Allergy, Unknown, 09/20/15) Patient History Past Medical History: see triage record Pertinent Family History: none Reviewed Nursing Documentation: PMH: Agreed, PSxH: Agreed Nursing Documentation-PMH Past Medical History: No Stated History Review of Systems All Other Systems: negative except mentioned in HPI Physical Exam Vital Signs Date Time Temp Pulse Resp B/P (MAP) Pulse Ox O2 Delivery O2 Flow Rate FiO2 07/18/17 23:46 98.6 93 18 120/81 96 Room Air Sp02 EP Interpretation: reviewed, normal General Appearance: well appearing, no apparent distress Head: normocephalic, atraumatic Eyes: bilateral eye PERRL, bilateral eye EOMI ENT: normal pharynx, no angioedema Neck: full range of motion, supple Respiratory: lungs clear, normal breath sounds Cardiovascular #1: regular rate, rhythm, no edema Gastrointestinal: non tender, soft Genitourinary: no CVA tenderness Musculoskeletal: normal inspection Neurologic: alert, oriented x3, responsive Skin: normal color, no rash Lymphatic: no adenopathy Medical Decision Making Diagnostic Impression: Primary Impression: Urethritis ER Course Patient's urine sample is clear Patient requires close followup with [facility] clinic for further testing are given the discharge and the discomfort patient was treated symptomatically here in the ER and will have close followup Labs Test 07/18/17 23:55 Urine Color Yellow Urine Appearance Clear Urine pH 8 (4.5-8.0) Urine Specific [place] 1.015 (1.005-1.035) Urine Protein Negative (NEGATIVE) Urine Glucose (UA) Negative (NEGATIVE) Urine Ketones Negative (NEGATIVE) Urine Occult Blood Negative (NEGATIVE) Urine Nitrite Negative (NEGATIVE) Urine Bilirubin Negative (NEGATIVE) Urine Urobilinogen Normal MG/DL (0.0-1.0) Urine Leukocyte Esterase Negative (NEGATIVE) Last Vital Signs Date Time Temp Pulse Resp B/P (MAP) Pulse Ox O2 Delivery O2 Flow Rate FiO2 07/19/17 00:07 98.6 18 120/81 96 Room Air 07/18/17 23:46 93 Status: improved Disposition: HOME, SELF-CARE Condition: Improved Scripts Phenazopyridine Hcl* (PYRIDIUM*) 200 Mg Tablet 200 MG ORAL THREE TIMES A DAY, #9 TAB 0 Refills Prov: YARA SOL D.O. 07/19/17 Additional Instructions: Patient is provided with the discharge instructions notified to follow up with primary doctor in the next 2-3 days otherwise return to the er with any worsening symptoms. Please note that this report is being documented using [employer] technology. This can lead to erroneous entry secondary to incorrect interpretation by the dictating instrument. YARA SOL D.O. Jul 19, 2017 00:13
[2017-07-19] MEDS ORDERED: Azithromycin 250mg tab ORAL ONE (00:15)
[2017-07-19 00:27] LABS: APPEARANCE,URINE CLEAR; KETONES,URINE NEGATIVE (NEGATIVE); LEUKOCYTE ESTERASE ,URINE NEGATIVE (NEGATIVE); NITRITE,URINE NEGATIVE (NEGATIVE); PH,URINE 8 (4.5-8.0); PROTEIN,URINE NEGATIVE (NEGATIVE); UROBILINOGEN,URINE NORMAL MG/DL (0.0-1.0)
[2017-07-19] MEDS ORDERED: PHENAZOPYRIDIN200 MG ORAL (00:34)
[2017-07-19 00:42] VITALS: BP 120/81
[2017-07-19] MEDS ORDERED: Phenazopyridine 200mg tab ORAL ONE (00:45)
== END 2017-07-19 00:42 | disposition home or self-care (01) ==
LOC: EMR 23:59
DX: N34.2 Other urethritis (principal)
CPT/HCPCS: 81003; 96372; 99284; J0696; Q0144

== ENCOUNTER 2017-09-17 22:00 | Emergency (ER) | payer MEDICAID ==
[~2017-09-17] VITALS: Ht 167.6 cm; Wt 90.3 kg
[~2017-09-17 22:00] MED LIST changes: +PHENAZOPYRIDIN200 MG ORAL
[2017-09-17 22:25] VITALS: BP 117/69
[2017-09-17] MEDS ORDERED: Bactrim-DS 1 tab ORAL ONE (22:45)
[2017-09-17] MEDS ORDERED: Norco 5mg/325mg tab ORAL ONE (22:45)
[2017-09-17] MEDS ORDERED: MUPIROCIN22 GM TOPIC (23:22)
[2017-09-17] MEDS ORDERED: BACTRIM DS TAB1 EAC1 ORAL (23:22)
[2017-09-17] MEDS ORDERED: HYDROCODON-ACE1 EA15 ORAL (23:22)
--- NOTE | 2017-09-17 23:22 | Emergency Room Report ---
History of Present Illness General Chief Complaint: Pain Source: Patient Present Illness HPI 32-year-old male with history of cellulitis/abscess. He presents with swelling and tenderness of his nose for the last 3 days. No drainage. Tender to palpation. Pain is 9/10. No nausea no vomiting. No fever chills but no drainage. Allergies: Coded Allergies: NO KNOWN DRUG ALLERGIES (Unverified Allergy, Unknown, 09/20/15) Patient History Past Medical History: see triage record, old chart reviewed Past Surgical History: none Pertinent Family History: none Social History: Denies: smoking Immunizations: other Reviewed Nursing Documentation: PMH: Agreed, PSxH: Agreed Nursing Documentation-PMH Past Medical History: No Stated History Review of Systems Eye: Denies: eye pain, blurred vision ENT: Denies: ear pain, nose congestion, throat swelling Respiratory: Denies: cough, shortness of breath Cardiovascular: Denies: chest pain, palpitations Gastrointestinal: Denies: abdominal pain, diarrhea, nausea, vomiting Musculoskeletal: Denies: back pain, joint pain Skin: Denies: rash Neurological: Denies: headache, numbness Endocrine: Denies: increased thirst, increased urine Hematologic/Lymphatic: Denies: easy bruising All Other Systems: negative except mentioned in HPI Physical Exam Vital Signs Date Time Temp Pulse Resp B/P (MAP) Pulse Ox O2 Delivery O2 Flow Rate FiO2 09/17/17 22:08 98.1 86 16 117/69 95 Room Air vitals normal Sp02 EP Interpretation: reviewed, normal General Appearance: well appearing, no apparent distress, alert Head: normocephalic, atraumatic Eyes: bilateral eye PERRL, bilateral eye EOMI ENT: hearing grossly normal, normal pharynx, other - Nose with edema and tenderness. There is a 1 cm absces to the left nares Neck: full range of motion, supple, no meningismus Respiratory: chest non-tender, lungs clear, normal breath sounds Cardiovascular #1: regular rate, rhythm, no murmur Gastrointestinal: normal bowel sounds, non tender, no mass, no organomegaly, no bruit, non-distended Musculoskeletal: back normal, gait/station normal, normal range of motion Psychiatric: mood/affect normal Skin: warm/dry Procedures Incision and Drainage Incision and Drainage : Consent: Verbal Site: Nose Blade Size: 11 Wound Location: other - Nose Anesthesia: 1% Lidocaine Volume Anesthetic (ccs): 1 Patient Tolerated: Well Complications: None Progress local anesthetic with 1% lidocaine. Less than 1 mL injected. I made a 1 cm incision w scalpel. There small amount of pus expressed. she tolerated procedure without problem. Medical Decision Making Diagnostic Impression: Primary Impression: Nasal abscess ER Course Patient with an abscess to the nares. He grew out MRSA in the past. We'll discharge home with Bactroban and Bactrim. No deep infection. Last Vital Signs Date Time Temp Pulse Resp B/P (MAP) Pulse Ox O2 Delivery O2 Flow Rate FiO2 09/17/17 22:25 98.1 86 16 117/69 95 Room Air Status: improved Disposition: HOME, SELF-CARE Condition: Stable Scripts Mupirocin* (MUPIROCIN*) 22 Gm Oint...g. 1 APPLIC TOPIC THREE TIMES A DAY, #22 GM Prov: STACIE COLLIER M.D. 09/17/17 Hydrocodone/Acetaminophen 5-325* (HYDROCODONE/ACETAMINOPHEN 5-325*) 1 Each Tablet 1 TAB ORAL Q4H Y for For Pain, #15 TAB 0 Refills Prov: STACIE COLLIER M.D. 09/17/17 Trimethoprim/Sulfamethoxazole 160/800* (BACTRIM DS TABLET*) 1 Each Tablet 1 TAB ORAL Q12H, #14 TAB 0 Refills Prov: STACIE COLLIER M.D. 09/17/17 Additional Instructions: Followup your DrRona in 7 days. Return if worse. STACIE COLLIER M.D. Sep 17, 2017 23:22
[2017-09-17 23:30] VITALS: BP 117/69
== END 2017-09-17 23:32 | disposition home or self-care (01) ==
LOC: EMR 22:20
DX: L02.818 Cutaneous abscess of other sites (principal)
CPT/HCPCS: 10060; 99284

== ENCOUNTER 2017-09-20 12:19 | Emergency (ER) | payer MEDICAID ==
[~2017-09-20] VITALS: Ht 167.6 cm; Wt 91.2 kg
[~2017-09-20 12:19] MED LIST changes: +HYDROCODON-ACE1 EA15 ORAL; +MUPIROCIN22 GM TOPIC
[2017-09-20] MEDS ORDERED: Vancomycin 1gm inj IVPB ONE (13:59)
[2017-09-20] MEDS ORDERED: Vancomycin 1 GM in NS 275 ML IVPB ONE (14:00)
--- NOTE | 2017-09-20 14:31 | Emergency Room Report ---
History of Present Illness General Chief Complaint: Skin Rash/Abscess Source: Patient, Family Member - Present Illness HPI 32 yo male patient presents to ER complaining of nose pain. Patient was seen in ER 2 days ago and had abscessed drained in nose. Patient was discharged home with Bactrim and [place] for pain. Patient states swelling and pain have increased. Reports taking "3 or 4" Pe[place] for pain prior to arrival at ED; reports no relief of pain symptoms. Patient complains of subjective fever at home; no fever in ER at presentation. Patient complains of purulent drainage from nose; denies blood. Denies chest pain, rash, SOB, ear pain, sore throat, vision changes, nausea, vomiting. Allergies: Coded Allergies: NO KNOWN DRUG ALLERGIES (Unverified Allergy, Unknown, 09/20/15) Patient History Past Medical History: see triage record Pertinent Family History: none Reviewed Nursing Documentation: PMH: Agreed, PSxH: Agreed Nursing Documentation-PMH Past Medical History: No Stated History Review of Systems All Other Systems: negative except mentioned in HPI Physical Exam Vital Signs Date Time Temp Pulse Resp B/P (MAP) Pulse Ox O2 Delivery O2 Flow Rate FiO2 09/20/17 13:23 98.1 81 16 122/76 95 Room Air Sp02 EP Interpretation: reviewed, normal General Appearance: alert, GCS 15, non-toxic, mild distress Head: normocephalic, atraumatic Eyes: bilateral eye normal inspection, bilateral eye PERRL ENT: hearing grossly normal, normal pharynx, TMs + canals normal, uvula midline , moist mucus membranes, nasal congestion - no active draining, purulent pus present, no active bleeding, dried blood present, erythema and mild edema present in nares Neck: full range of motion, supple/symm/no masses Respiratory: chest non-tender, lungs clear, normal breath sounds, no respiratory distress, no wheezing, speaking full sentences Cardiovascular #1: regular rate, rhythm, no edema Musculoskeletal: back normal, digits/nails normal, gait/station normal, normal range of motion, non-tender Neurologic: alert, oriented x3, responsive, motor strength/tone normal, sensory intact, speech normal Skin: no rash, warm/dry, palpation normal, other - external nose: cellulitis of distal nose, erythema, edema, indurated, no active draining, does not come to a point, TTP Medical Decision Making PA Attestation Dr. Heath is my supervising Physician whom patient management has been discussed with. Diagnostic Impression: Primary Impression: Cellulitis ER Course Pt. presents to the ED c/o nose abscess pain. Ddx considered but are not limited to rash, cellulitis, abscess, septal hematoma. Vital signs: are WNL, pt. is afebrile ORDERS: CT face with contrast CBC CMP ED INTERVENTIONS: IV Vancomycin No medication provided for pain, patient reports taking pain medication prior to arrival in ER. Labs below, no elevation of WBC. 0345 PM Patient request pain medication. Provide patient with Motrin for pain symptoms. Spoke with radiologist. CT face shows soft tissue swelling with possible cellulitis, no evidence of drainable abscess, unremarkable exam. Discuss treatment with Dr. Heath who saw patient. DISCHARGE: -Rx provided for Keflex for 7 days. -Rx provided for Bactrim for 7 days, total of 14 days of treatment. -Rx provided for Ibuprofen Dr. Heath agrees to treatment plan. At this time pt. is stable for d/c to home. Patient is nontoxic appearing, in no acute distress. Will provide printed patient care instructions and any necessary prescriptions. Care plan and follow up instructions have been discussed with the patient prior to discharge. Patient instructed to follow-up with primary care provider in 2 - 3 days for wound recheck and further referral to ENT. Patient questions asked and answered. Patient reports understanding and agreement to treatment plan. ER precautions given. Patient instructed to return to ER immediately for any new or worsening of symptoms including but not limited to fever, worsening of pain symptoms. Labs Test 09/20/17 14:15 White Blood Count 9.4 K/UL (4.8-10.8) Red Blood Count 5.37 M/UL (4.70-6.10) Hemoglobin 16.9 G/DL (14.2-18.0) Hematocrit 49.4 % (42.0-52.0) Mean Corpuscular Volume 92 FL (80-99) Mean Corpuscular Hemoglobin 31.4 PG (27.0-31.0) Mean Corpuscular Hemoglobin Concent 34.1 G/DL (32.0-36.0) Red Cell Distribution Width 12.0 % (11.6-14.8) Platelet Count 262 K/UL (150-450) Mean Platelet Volume 8.6 FL (6.5-10.1) Neutrophils (%) (Auto) 51.5 % (45.0-75.0) Lymphocytes (%) (Auto) 30.8 % (20.0-45.0) Monocytes (%) (Auto) 10.3 % (1.0-10.0) Eosinophils (%) (Auto) 6.3 % (0.0-3.0) Basophils (%) (Auto) 1.1 % (0.0-2.0) Sodium Level 136 MMOL/L (136-145) Potassium Level 4.1 MMOL/L (3.5-5.1) Chloride Level 100 MMOL/L (98-107) Carbon Dioxide Level 25 MMOL/L (21-32) Anion Gap 11 mmol/L (5-15) Blood Urea Nitrogen 14 mg/dL (7-18) Creatinine 1.1 MG/DL (0.55-1.30) Estimat Glomerular Filtration Rate > 60 mL/min (>60) Glucose Level 89 MG/DL (74-106) Calcium Level 8.9 MG/DL (8.5-10.1) Total Bilirubin 0.4 MG/DL (0.2-1.0) Aspartate Amino Transf (AST/SGOT) 25 U/L (15-37) Alanine Aminotransferase (ALT/SGPT) 68 U/L (12-78) Alkaline Phosphatase 56 U/L (46-116) Total Protein 8.4 G/DL (6.4-8.2) Albumin 4.1 G/DL (3.4-5.0) Globulin 4.3 g/dL Albumin/Globulin Ratio 1.0 (1.0-2.7) CT/MRI/US Diagnostic Results CT/MRI/US Diagnostic Results : Imaging Test Ordered: Facial Ct Impression Equivocal minimal nasal soft tissue swelling and enhancement, concordant with clinical history. Nonspecific, may indicate some nasal cellulitis. No evidence of drainable abscess demonstrated. No abnormality of the nasal fossa noted except for minimal rightward nasal septal deviation Otherwise unremarkable exam Last Vital Signs Date Time Temp Pulse Resp B/P (MAP) Pulse Ox O2 Delivery O2 Flow Rate FiO2 09/20/17 13:23 98.1 81 16 122/76 95 Room Air Disposition: HOME, SELF-CARE Condition: Stable Scripts Trimethoprim/Sulfamethoxazole 160/800* (BACTRIM DS TABLET*) 1 Each Tablet 1 TAB ORAL TWICE A DAY for 7 Days, #14 TAB Prov: Shorty Ellington 09/20/17 Cephalexin* (KEFLEX*) 500 Mg Capsule 500 MG ORAL EVERY 12 HOURS for 7 Days, #14 CAP 0 Refills Prov: Shorty Ellington 09/20/17 Ibuprofen* (MOTRIN*) 600 Mg Tablet 600 MG ORAL Q6H Y for For Pain, #30 TAB Prov: Shorty Ellington 09/20/17 Referrals: [facility],REFERRING (PCP) Patient Instructions: Abscess, Cellulitis, [id number] Additional Instructions: Followup with primary care provider in 2-3 days to discuss treatment and referral to ENT. Take medications as directed. Take antibiotics to completion. Patient questions asked and answered. ER precautions given, patient instructed to return to ER immediately for any new or worsening of symptoms. Shorty Ellington Sep 20, 2017 14:31
[2017-09-20 14:57] LABS: BASOPHILS % (AUTO) 1.1 % (0.0-2.0); EOSINOPHILS % (AUTO) 6.3 % (0.0-3.0); HEMATOCRIT 49.4 % (42.0-52.0); HEMOGLOBIN 16.9 G/DL (14.2-18.0); LYMPHOCYTES % (AUTO) 30.8 % (20.0-45.0); MEAN CORPUSCULAR VOLUME 92 FL (80-99); MONOCYTES % (AUTO) 10.3 % (1.0-10.0); NEUTROPHILS % (AUTO) 51.5 % (45.0-75.0); PLATELET COUNT 262 K/UL (150-450); RED BLOOD COUNT 5.37 M/UL (4.70-6.10); WHITE BLOOD COUNT 9.4 K/UL (4.8-10.8)
[2017-09-20 15:02] LABS: ANION GAP 11 mmol/L (5-15); BLOOD UREA NITROGEN 14 mg/dL (7-18); CALCIUM 8.9 MG/DL (8.5-10.1); CARBON DIOXIDE 25 MMOL/L (21-32); CHLORIDE 100 MMOL/L (98-107); CREATININE 1.1 MG/DL (0.55-1.30); POTASSIUM 4.1 MMOL/L (3.5-5.1); SODIUM 136 MMOL/L (136-145)
[2017-09-20 15:07] LABS: ALANINE AMINOTRANSFERASE 68 U/L (12-78); ALBUMIN 4.1 G/DL (3.4-5.0); ALKALINE PHOSPHATASE 56 U/L (46-116); ASPARTATE AMINO TRANSFERASE 25 U/L (15-37); BILIRUBIN,TOTAL 0.4 MG/DL (0.2-1.0)
--- NOTE | 2017-09-20 16:03 | Diagnostic Imaging Report ---
Indication: Pain and swelling of nose, status post recent drainage of deep nasal abscess Technique: IV administration nonionic contrast Spiral acquisitions obtained through the Multiplanar reconstructions were generated. Total dose length product 604.22 mGycm. CTDIvol(s) 28.19 mGy. Radiation dose was minimized using automated exposure control Comparison: none Findings: There is minimal if any nasal soft tissue swelling and enhancement. No evidence of nasal fracture. No evidence of abscess. There is rightward nasal septal deviation. The nasopharynx is unremarkable. The nasal fossa structures including the mucosa are unremarkable The sinuses are clear. The dentition is intact. No unusual contrast enhancement is demonstrated. The optic globes are intact. The visualized intracranial structures are unremarkable. The parapharyngeal spaces are clear, symmetric. There are bilateral prominent but not enlarged lymph nodes. Unremarkable oropharynx, hypopharynx. Impression: Equivocal minimal nasal soft tissue swelling and enhancement, concordant with clinical history. Nonspecific, may indicate some nasal cellulitis. No evidence of drainable abscess demonstrated. No abnormality of the nasal fossa noted except for minimal rightward nasal septal deviation Otherwise unremarkable exam The CT scanner at [facility] is accredited by the [employer] and the scans are performed using protocols designed to limit radiation exposure to as low as reasonably achievable to attain images of sufficient resolution adequate for diagnostic evaluation.
[2017-09-20] MEDS ORDERED: IBUPROFEN600 MG ORAL (16:38)
[2017-09-20] MEDS ORDERED: BACTRIM DS TAB1 EAC1 ORAL (16:38)
[2017-09-20] MEDS ORDERED: CEPHALEXIN500 MG ORAL (16:38)
[2017-09-20 16:51] VITALS: BP 122/76
[2017-09-20 16:56] VITALS: BP 122/76
== END 2017-09-20 16:58 | disposition home or self-care (01) ==
LOC: EMR 13:25
DX: L03.211 Cellulitis of face (principal)
CPT/HCPCS: 36415; 70488; 80053; 85025; 96365; 99284; J3370; J7050; Q9967